=== PATIENT | female | born 1980 | race Caucasian/White ===

== ENCOUNTER 2016-09-20 05:40 | Inpatient (IN) | payer OTHER ==
[2016-09-20] MEDS ORDERED: SODIUM PHOSPHATE/NA BIPHOS 133 ML ENEMA RC ONE (06:45)
[2016-09-20] MEDS ORDERED: DEXTROSE 5%-LACTATED RINGERS 1,000 ML IV SCH (07:00)
[2016-09-20] MEDS ORDERED: TUBERCULIN PPD 5 TU/0.1ML SYRINGE (IN PATIENT USE ONLY) ID ONE (08:15)
[2016-09-20 08:37] LABS: BASOPHIL 0.9 % (0-2.0); EOSINOPHIL 0.2 % (0-4.5); MCH 31.2 pg (25.7-33.7); MCHC 33.3 g/dl (32.0-36.0); MEAN CELL VOLUME 93.8 fl (80-96); MEAN PLT VOLUME 8.2 fl (7.5-11.1); NEUTROPHILS 79.4 % (42.8-82.8); PLATELET COUNT 175 K/MM3 (134-434); RDW 13.7 % (11.6-15.6); WHITE BLOOD COUNT 17.2 K/mm3 (4.0-10.0)
[2016-09-20 09:04] LABS: CALCIUM 8.1 mg/dL (8.5-10.1); CREATININE 0.4 mg/dL (0.55-1.02)
[2016-09-20 09:07] LABS: INR 1.02 (0.82-1.09); PROTHROMBIN TIME (PATIENT) 11.2 SEC (9.98-11.88)
[2016-09-20 09:09] LABS: ACTIVATED PTT 26.9 SECONDS (26.9-34.4)
[2016-09-20] MEDS ORDERED: FENTANYL/BUPIVACAINE/NS/PF - PCEA - 50 ML DISP.SYRIN EP SCH (09:30)
[2016-09-20 09:32] LABS: HIV 1 & 2 AB NEGATIVE; HIV 1 AGp24 NEGATIVE
[2016-09-20 10:14] VITALS: BMI 26.1
[2016-09-20] MEDS ORDERED: METHYLERGONOVINE MALEATE 0.2 MG/1 ML AMP IM PRN (12:42)
[2016-09-20] MEDS ORDERED: BENZOCAINE 28 GM HEMORRHOIDAL OINTMENT TP PRN (12:42)
[2016-09-20] MEDS ORDERED: BISACODYL 10 MG SUPP.RECT RC PRN (12:42)
[2016-09-20] MEDS ORDERED: BENZOCAINE 20% 57 GM BOTTLE TP PRN (12:42)
[2016-09-20] MEDS ORDERED: WITCH HAZEL 50% (TUCKS) 40 PAD/JAR PAD TP PRN (12:42)
--- NOTE | 2016-09-20 12:44 | PN ---
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 - 1 Minute Total Score: 9 5 Minutes Total Score: 9 - Feeding Plan Initial Plan: Exclusive throughout hospitalization Benefits of Exclusively reinforced: Yes Remarks - Remarks Remarks: Normal labor and delivery
[2016-09-20] MEDS ORDERED: D5W-LR W/ 20 UNITS OXYTOCIN 1,000 ML IV SCH (12:45)
[2016-09-20] MEDS: IBUPROFEN 600 MG TABLET (FP) PO PRN ×2 (15:02→21:40)
[2016-09-20] MEDS: ACETAMINOPHEN 325 MG TABLET (FP) PO PRN ×2 (15:03→21:40)
--- NOTE | 2016-09-20 18:36 | HP ---
Past Medical History - Primary Care Physician PCP:: Elpidio May - Admission Chief Complaint: 36 yo P1 with at EGA [id number] came in with spontaneous labor, progressed from 2cm to 10cm quickly, and delivered. History of Present Illness: Pt came in with c/o irregular contractions. On initial evaluation, the pt did not appear to be in labor. Upon further evaluation, the pt was noted to be dilating and suddenly quickly progressed to 10cm. History Source: Patient, Medical Record Limitations to Obtaining History: No Limitations - Past Medical History RESIDENTIAL COLLECTIONS: No: Alzheimer's, CVA, Dementia, Migraine, Multiple Sclerosis, Peripheral Neuropathy, Parkinson's, Seizure, Syncope, TIA, Vertigo, Other Cardiovascular: No: AFIB, Aneurysm, Aortic Insufficiency, Aortic Stenosis, CAD, CHF, Deep Vein Thrombosis, HTN, Hyperlipdemia, FL, Mitral Insufficiency, Mitral Stenosis, Murmur, Pulmonary Hypertension, Other Pulmonary: No: Asthma, Bronchitis, Cancer, COPD, O2 Dependent, Pneumonia, Previously Intubated, Pulmonary Embolus, Pulmonary Fibrosis, Sleep Apnea, Other Gastrointestinal: No: Ascites, Cancer, Constipation, Crohn's Disease, Diverticulitis, Diverticulosis, Esophageal Varices, Gastritis, GERD, GI Bleed, Hemorrhoids, Hiatal Hernia, Inflamatory Bowel Disease, Irritable Bowel Disease, Pancreatitis, Peptic Ulcer Disease, Ulcerative Colitis, Other Hepatobiliary: No: Cirrhosis, Cholelithiasis, Cholecystitis, Choledocholithiasis , Hepatitis A, Hepatitis B, Hepatitis C, Other Renal/: No: Renal Failure, Renal Inusuff, BPH, Cancer, Hematuria, Hemodialysis , Neurogenic Bladder, Renal Calculi, UTI, Other Reproductive: No: Ectopic , Endometriosis, Fibroids, PID, Polycystic Ovary Syndrome, Postmenopausal, Other ...: 2 ...Para: 1 ...Term: 1 ...: 0 ...Spon : 0 ...Induced : 0 ...Multiple Gestation: 0 ...LMP: 12/16/15 ...EDC by Sono: 09/21/15 Infectious Disease: No: AIDS, C-Diff, Herpes Zoster, HIV, MRSA, STD's, Tuberculosis, VREF, Other Psych: No: Addictions, Anxiety, Bipolar, Depression, Panic, Psychosis, Schizophrenia, Other Musculoskeletal: No: Bursitis, Chronic low back pain, Hemiparesis, Hemiplegia, Osteoarthritis, Paraplegia, Other Rheumatology: No: Fibromyalgia, Gout, Lupus, Rheumatoid Arthritis, Sarcoidosis, Vasculitis, Other ENT: No: Allergic Rhinitis, Sinusitis, Other Endocrine: No: Braxton's Disease, [place]'s Disease, Diabetes Insipidus, Diabetes Mellitus, Hyperparathyroidism, Hyperthyroidism, Hypothyroidism, Osteopenia, SIADH, Other Dermatology: No: Basal Cell, Cellulitis, Eczema, Melanoma, Psoriasis, Squamous Cell, Other - Past Surgical History Hx Myomectomy: No Hx Transabdominal Cerclage: No - Smoking History Smoking history: Never smoked Have you smoked in the past 12 months: No Aproximately how many cigarettes per day: 0 - Alcohol/Substance Use Hx Alcohol Use: No History of Substance Use: reports: None - Social History Usual Living Arrangement: Yes: With Spouse, With Child ADL: Independent History of Recent Travel: No Home Medications - Allergies Allergies/Adverse Reactions: Allergies Allergy/AdvReac Type Severity Reaction Status Date / Time No Known Allergies Allergy Verified 05/12/16 01:18 - Home Medications Home Medications: Ambulatory Orders Pnv95/Ferrous Fumarate/FA [ Caplet] 1 each PO DAILY 05/11/16 Family Disease History - Family Disease History Family History: Denies Review of Systems - Review of Systems Constitutional: reports: Other (pt was pushing on initial exam) Eyes: reports: No Symptoms HENT: reports: No Symptoms Neck: reports: No Symptoms Cardiovascular: reports: No Symptoms Respiratory: reports: No Symptoms Gastrointestinal: reports: No Symptoms Genitourinary: reports: No Symptoms Musculoskeletal: reports: No Symptoms Integumentary: reports: No Symptoms Neurological: reports: No Symptoms Endocrine: reports: No Symptoms Hematology/Lymphatic: reports: No Symptoms Psychiatric: reports: No Symptoms Pain Intensity: 10 Physical Exam - Maternity Vital Signs: Vital Signs Temperature 97.8 F 09/20/16 17:55 Pulse Rate 67 09/20/16 17:55 Respiratory Rate 20 09/20/16 17:55 Blood Pressure 99/54 09/20/16 17:55 O2 Sat by Pulse Oximetry (%) Constitutional: Yes: Well Nourished, Anxious, Moderate Distress Eyes: Yes: WNL, Conjunctiva Clear HENT: Yes: WNL, Atraumatic, Normocephalic Neck: Yes: WNL, Supple Cardiovascular: Yes: WNL - Abdominal Exam/OB Fundal Height: 39 Number of Fetuses: Single Presentation: Vertex Contractions: Yes Regularity: Regular Intensity: Mod/Strong Monitor Mode: External Heart Rate (range): 2-3min Heart Rate Location: Midline Accelerations: Non-Uniform Decelerations: Early - Vaginal Exam/OB Vaginal Bleediing: No Speculum Exam: No Dilatation (cm): 10 Effacement (%): 100 Amniotic Membrane Status: Ruptured (AROM) Amniotic Fluid: Yes: Meconium Stained Meconium: Moderate Presentation: Vertex/Position Station: +1 - Physical Exam Musculoskeletal: Yes: WNL Extremities: Yes: WNL Edema: Yes Edema: LLE: Trace, RLE: Trace Integumentary: Yes: WNL ...Motor Strength: WNL Psychiatric: Yes: WNL, Alert, Oriented - Labs Lab Results: CBC, BMP 09/20/16 08:25 09/20/16 08:25 Hemorrhage Risk Assessment - Risk Factors Medium Risk Factors: Yes: None High Risk Factors: Yes: None Risk Score: 1 Risk Level: Medium Risk Assessment/Plan 36 yo P1 presented with spont labor at term. The pt proceeded to have a normal w/o complications. She delivered easily over a midline 2nd degree perineal laceration. The baby noted to have a nuchal cord x 1 and a true knot x 1. 9/9. Pt is well.
[2016-09-21 07:01] LABS: BASOPHIL 0.7 % (0-2.0); EOSINOPHIL 0.6 % (0-4.5); MCH 31.4 pg (25.7-33.7); MCHC 33.5 g/dl (32.0-36.0); MEAN CELL VOLUME 93.7 fl (80-96); MEAN PLT VOLUME 8.3 fl (7.5-11.1); NEUTROPHILS 72.6 % (42.8-82.8); PLATELET COUNT 172 K/MM3 (134-434); RDW 14.1 % (11.6-15.6); WHITE BLOOD COUNT 15.9 K/mm3 (4.0-10.0)
--- NOTE | 2016-09-21 08:07 | PN ---
Post Progress Note - Subjective Subjective: No complaints Post Day: 1 Type of Delivery: Vital Signs: Vital Signs Temperature 98.0 F 09/21/16 05:45 Pulse Rate 70 09/21/16 05:45 Respiratory Rate 18 09/21/16 05:45 Blood Pressure 90/58 09/21/16 05:45 O2 Sat by Pulse Oximetry (%) Breast Exam: Yes: Soft Uterus: Yes: Fundus Firm, Fundus below umbilicus, Non-tender Abdomen/GI: Yes: Abdomen soft, Passing flatus, Tolerating PO Lochia: Yes: Rubra Lochia, amount: Small Extremities: Yes: Calves non-tender Perineum: Yes: Intact Activity: Ambulating - Labs Labs: CBC WBC 15.9 K/mm3 (4.0-10.0) H 09/21/16 06:00 RBC 3.35 M/mm3 (3.60-5.2) L 09/21/16 06:00 Hgb 10.5 GM/dL (10.7-15.3) L 09/21/16 06:00 Hct 31.4 % (32.4-45.2) L 09/21/16 06:00 MCV 93.7 fl (80-96) 09/21/16 06:00 MCHC 33.5 g/dl (32.0-36.0) 09/21/16 06:00 RDW 14.1 % (11.6-15.6) 09/21/16 06:00 Plt Count 172 K/MM3 (134-434) 09/21/16 06:00 MPV 8.3 fl (7.5-11.1) 09/21/16 06:00 Neutrophils % 72.6 % (42.8-82.8) 09/21/16 06:00 Lymphocytes % 17.9 % (8-40) D 09/21/16 06:00 Monocytes % 8.2 % (3.8-10.2) 09/21/16 06:00 Eosinophils % 0.6 % (0-4.5) D 09/21/16 06:00 Basophils % 0.7 % (0-2.0) 09/21/16 06:00 Problem List - Problems (1) Normal vaginal delivery Assessment/Plan: 36yo P2 s/p , doing well stable, afebrile. care instructions reviewed. Continue routine care. Ambulation encouraged Discharge instruction reviewed. Code(s): O80 - ENCOUNTER FOR FULL-TERM UNCOMPLICATED DELIVERY
[2016-09-21] MEDS: PRENATAL VITAMINS W/ FOLIC ACID TABLET (FP) PO SCH (09:25)
[2016-09-21] MEDS: ACETAMINOPHEN 325 MG TABLET (FP) PO PRN ×2 (14:03→21:45)
[2016-09-21] MEDS: IBUPROFEN 600 MG TABLET (FP) PO PRN ×2 (14:04→21:44)
[2016-09-21] MEDS ORDERED: SENNOSIDES/DOCUSATE COMBO (SENNA PLUS) TABLET (UD) PO PRN (22:00)
[2016-09-22] MEDS: ACETAMINOPHEN 325 MG TABLET (FP) PO PRN (08:06)
[2016-09-22] MEDS: IBUPROFEN 600 MG TABLET (FP) PO PRN (08:07)
--- NOTE | 2016-09-22 09:31 | DS ---
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 Signs: Vital Signs Temperature 98.0 F 09/21/16 22:00 Pulse Rate 68 09/21/16 22:00 Respiratory Rate 18 09/21/16 22:00 Blood Pressure 100/60 09/21/16 22:00 O2 Sat by Pulse Oximetry (%) Constitutional: Yes: Well Nourished, No Distress, Calm Eyes: Yes: WNL, Conjunctiva Clear, EOM Intact HENT: Yes: WNL, Atraumatic, Normocephalic Neck: Yes: WNL, Supple, Trachea Midline Cardiovascular: Yes: WNL, Regular Rate and Rhythm Respiratory: Yes: WNL, Regular, CTA Bilaterally Gastrointestinal: Yes: WNL ...Rectal Exam: Yes: WNL Renal/: Yes: WNL ....Post : Yes: Uterus firm, Uterus non-tender, Slight lochia rubra Breast(s): Yes: WNL Musculoskeletal: Yes: WNL Extremities: Yes: WNL Integumentary: Yes: WNL Neurological: Yes: WNL, Alert, Oriented ...Motor Strength: WNL Psychiatric: Yes: WNL, Alert, Oriented Labs: CBC, BMP 09/21/16 06:00 09/20/16 08:25 Delivery - Delivery Vaginal Delivery: No Problems, Spontaneous Type of Anesthesia: Local Episiotomy/Laceration: Vaginal Extension/lac, 2nd degree EBL (cc): 300 Delivery, Single - Stages of Labor Date 1st Stage Initiatied: 09/20/16 Time 1st Stage Initiated: 03:00 Date 2nd Stage Initiated: 09/20/16 Time 2nd Stage Initiated: 08:50 Date of Delivery: 09/20/16 Time of Delivery: 09:11 Time Placenta Delivered: 09:15 Placenta: Yes: Spontaneous, Normal Configuration - Condition of Hurl Shaker/Human Intelligence Present: No Infant Gender: Male Weight: 6 lb 12 oz Position: Left, OA Total Hours ROM (Hrs/Mins): 21 min. - 1 Minute Total Score: 9 5 Minutes Total Score: 9 - Feeding Plan Initial Plan: Exclusive throughout hospitalization Benefits of Exclusively reinforced: Yes Discharge Summary Reason For Visit: FOR DELIVERY Current Active Problems Normal vaginal delivery (Acute) Condition: Good - Instructions Diet, Activity, Other Instructions: Physical activity Resume your normal everyday activity as tolerated no heavy lifting or exercise until seen by your surgeon. You may walk unlimited nadeen of and climb stairs. You may resume driving the car when you feel safe and comfortable behind the wheel. No sexual activity as instructed. Wound care If you have a bandage, leave it on, and keep dry for 48-72 hours. After that time discard the outer bandage. If they are tapes on the skin under the out of bandage leave them in place. They will peel off in the next 7 to 10 days. Do Not Peel them off. You may shower the day after surgery. If there are tapes present on the skin, you may shower over them. Diet There are no dietary restrictions. Eat healthy, high-fiber foods. Drink 6 to 8 glasses of liquid each day. This will assist in keeping your bowels are regular. Pain management You may take Tylenol or acetaminophen or Ibuprofen (for example, Motrin, Advil etc.) from my pain prescription medication is ordered should be taken as prescribed for moderate to severe pain. Call MD for any of the following: Severe pain not relieved by medication Fever of 101 or higher Excessive bleeding or drainage on dressing Inability to urinate Referrals: Elpidio May MD [Staff Physician] - Disposition: HOME - Home Medications Comprehensive Discharge Medication List: Ambulatory Orders Pnv95/Iron Fum/Folic Acid [ Caplet] 1 each PO DAILY 05/11/16 Ibuprofen [Motrin -] 600 mg PO QID #28 tablet 09/21/16
[2016-09-22] MEDS: PRENATAL VITAMINS W/ FOLIC ACID TABLET (FP) PO SCH (09:53)
[2016-09-22 10:36] VITALS: TEMP 98
[2016-09-22 10:37] VITALS: BP 100/63; PULSE 70
== END 2016-09-22 14:00 | disposition home or self-care (01) | DRG 775 ==
LOC: JDEL 05:40 → JLDR 07:30 → J3W 10:57
PROVIDERS: ADMIT Obstetrics & Gynecology; ATTEND Obstetrics & Gynecology
PROC: 10E0XZZ Delivery of Products of Conception, External Approach (ICD-10-PCS; principal; 2016-09-20)
PROC: 0KQM0ZZ Repair Perineum Muscle, Open Approach (ICD-10-PCS; 2016-09-20)
DX: O70.1 Second degree perineal laceration during delivery (principal); Z37.0 Single live birth; Z3A.39 39 weeks gestation of pregnancy; O09.513 Supervision of elderly primigravida, third trimester
CPT/HCPCS: 36415; 59025; 59409; 71020-TC; 80048; 85025; 85610; 85730; 86593; 86850; 86900; 86901; 87389